=== PATIENT | male | born 1965 | race Caucasian/White ===

== ENCOUNTER → 2020-05-15 15:43 | Outpatient (CLI) | payer BC, SELFPAY ==
--- NOTE | 2020-05-15 15:43 | DI.US.S_ITS ---
PROCEDURE: US ABDOMEN COMPLETE INDICATIONS: abdominal mass/lipoma TECHNIQUE: Real-time scanning was performed of the abdominal and retroperitoneal organs, with image documentation. COMPARISON: [facility], US, ABDOMEN COMPLETE, 06/02/2017, 7:55. FINDINGS: Liver: Liver is enlarged in size at 20 cm craniocaudad and homogeneous in echotexture, densely echogenic consistent with prominent hepatic steatosis. There also is a rounded hypoechoic possible mass involving the liver, measuring approximately 2.3 cm. This could represent a primary or metastatic mass. Gallbladder: Surgically absent Biliary ducts: Intrahepatic bile ducts are non-dilated. Extrahepatic bile duct caliber measures 5.1 mm. Normal is 6-7 mm or less in diameter, or 10 mm or less post-cholecystectomy. Pancreas: Visualized portions of the pancreas are sonographically normal. Spleen: Spleen is normal in size and homogeneous in echotexture. Kidneys: Kidneys are normal in size and echotexture. Right kidney measures 13.6 cm long; left kidney measures 13.5 cm long. No hydronephrosis or nephrolithiasis. No solid masses. Aorta: Visualized aorta is normal in caliber at less than 3 cm. Iliacs: Proximal common iliac arteries are normal in caliber at less than 2.5 cm. IVC: Intrahepatic inferior vena cava is patent. Miscellaneous: No free abdominal fluid. There is a clinically reported right lower quadrant palpable abnormality, lump, which is not associated with identifiable herniation cyst or mass. IMPRESSION: 1. Prominent hepatic steatosis. 2. Possible 2.3 cm mass anterior right hepatic lobe hypoechoic lesion. The finding is in the setting of poorly visualized liver parenchyma due to hepatic steatosis and for this reason multiphase liver CT scanning without and with contrast is recommended to more accurately assess this abnormality. 3. Surgically absent gallbladder. 4. The patient reports palpable abnormality right lower quadrant but no lesion or herniation is seen in this area. CT scanning related to the finding in section to above should be extended through the pelvis to more accurately assess this area. Dictated by: Ziggy Yuen M.D. on 05/15/2020 at 17:24 Approved by: Ziggy Yuen M.D. on 05/15/2020 at 17:28
== END ==
PROVIDERS: Family Provider Family Medicine; PCP Family Medicine; Referring Provider Registered Nurse; Visit Provider Registered Nurse
DX: R19.03 Right lower quadrant abdominal swelling, mass and lump (principal); K76.0 Fatty (change of) liver, not elsewhere classified; Z90.49 Acquired absence of other specified parts of digestive tract
CPT/HCPCS: 76700

== ENCOUNTER → 2020-05-22 12:09 | Outpatient (CLI) | payer BC, SELFPAY ==
--- NOTE | 2020-05-22 13:21 | DI.CT.S_ITS ---
PROCEDURE: CT ABDOMEN PELVIS WO/W CON INDICATIONS: abnormal US abdo. TECHNIQUE: After the administration of oral contrast, 5 mm thick sections acquired from the diaphragms to the iliac crests. After the administration of intravenous contrast, 5 mm thick sections acquired from the diaphragms to the symphysis. 5 mm thick coronal and sagittal reformats were acquired. For radiation dose reduction, the following was used: automated exposure control, adjustment of mA and/or kV according to patient size. COMPARISON: None. FINDINGS: Image quality: Excellent. ABDOMEN: Lung bases: Lung bases are clear. Heart size is normal. Solid organs: Liver is normal in size. Moderate to severe hepatic steatosis is seen. 2.3 centimeter round hyperdense structure is noted in lateral periphery of right hepatic lobe anterior segment series 2, image 29 and measures 31.8 Hounsfield unit in density before contrast. This structure measures 33 Hounsfield unit in density during arterial phase of the scan, 36 Hounsfield unit in density during portal venous phase of the scanned, and 50 Hounsfield unit in density during delayed phase of the scan. No other hepatic lesion is seen. Gallbladder is surgically absent. Biliary system is non-dilated. Pancreas enhances normally. Spleen is normal in size and enhancement. No adrenal nodules. Both kidneys are normal in size. No hydronephrosis or nephrolithiasis. Bowel and peritoneum: Stomach, small and large bowel loops are normal in caliber and wall thickness. No free fluid or air. Appendix is visualized and is within normal limits. Mild colonic diverticulosis is seen, no CT evidence of acute diverticulitis. small hiatal hernia is seen. Nodes and vessels: No retroperitoneal or mesenteric adenopathy by size criteria. Aorta and inferior vena are normal in caliber. Miscellaneous: No ventral hernias. PELVIS: Genitourinary: Bladder wall thickness is normal. Miscellaneous: No inguinal hernias or adenopathy. Bones: No suspicious bony lesions. No vertebral body compression fractures. IMPRESSION: 1. 2.3 cm hyperdense lesion noted in lateral periphery of right hepatic lobe anterior segment with gradual contrast enhancement during portal venous and delayed phase of the scan and no significant enhancement during arterial phase of the scan. This accounts for ultrasound finding of a similar-sized lesion in this area. Imaging characteristics of this lesion is suggestive of hepatic hemangioma. Clinical and sonographic follow-up is recommended. No additional hepatic lesion is seen. 2. Moderate to severe hepatic steatosis. 3. Appendix is visualized and is within normal limits. No abnormal bowel wall thickening. No free fluid or free air. 4. Gallbladder is surgically absent. Dictated by: Jose Santos M.D. on 05/22/2020 at 15:21 Approved by: Jose Santos M.D. on 05/22/2020 at 15:32
== END ==
PROVIDERS: Family Provider Family Medicine; PCP Family Medicine; Referring Provider Registered Nurse; Visit Provider Registered Nurse
DX: R93.5 Abnormal findings on diagnostic imaging of other abdominal regions, including retroperitoneum (principal); R19.00 Intra-abdominal and pelvic swelling, mass and lump, unspecified site; K76.9 Liver disease, unspecified; K76.0 Fatty (change of) liver, not elsewhere classified; Z90.49 Acquired absence of other specified parts of digestive tract
CPT/HCPCS: 74178; Q9967

== ENCOUNTER → 2020-12-15 11:28 | Outpatient (CLI) | payer BC, SELFPAY ==
--- NOTE | 2020-12-15 11:29 | DI.RAD.S_ITS ---
PROCEDURE: XR KNEE RT 3V INDICATIONS: Right knee injury and swelling TECHNIQUE: 3 views of the knee were acquired. COMPARISON: None. FINDINGS: Bones: No acute fracture. Scattered degenerative subchondral sclerosis and spurring. Minimal narrowing of the medial and lateral joint spaces. Subchondral lucency in the medial femoral trochlea measuring 4 mm. Soft tissues: Small joint effusion. No suspicious soft tissue calcifications. IMPRESSION: Mild right knee joint degeneration. Subchondral lucency involving the medial femoral trochlea, which could be cystic, versus osteochondral lesion. Further evaluation could be performed with MRI as clinically necessary. Small joint effusion Numerous loose bodies projecting in the posterior joint space. Dictated by: Junior Patel M.D. on 12/15/2020 at 13:27 Approved by: Junior Patel M.D. on 12/15/2020 at 14:06
== END ==
PROVIDERS: Family Provider Family Medicine; PCP Family Medicine; Referring Provider Student in an Organized Health Care Education/Training Program; Visit Provider Student in an Organized Health Care Education/Training Program
DX: S89.91XA Unspecified injury of right lower leg, initial encounter (principal); M17.11 Unilateral primary osteoarthritis, right knee; M25.461 Effusion, right knee; G57.30 Lesion of lateral popliteal nerve, unspecified lower limb; X58.XXXA Exposure to other specified factors, initial encounter
CPT/HCPCS: 73562

== ENCOUNTER → 2020-12-25 17:50 | Outpatient (CLI) | payer BC, SELFPAY ==
--- NOTE | 2020-12-25 17:51 | DI.MRI.S_ITS ---
PROCEDURE: MR KNEE RT WO/W CON INDICATIONS: bone lesion TECHNIQUE: Noncontrast sagittal PD fast spin echo and T2 fast spin echo with fat saturation, sagittal 3-D FLASH with fat saturation; coronal T1 spin echo and PD fast spin echo with fat saturation, and axial T1 spin echo and PD fast spin echo with fat saturation through the knee. Post-contrast axial, coronal, and sagittal T1 spin echo with fat saturation through the knee. COMPARISON: [facility], CR, XR KNEE RT 3V, 12/15/2020, 11:42. FINDINGS: Image quality: Excellent. Menisci: The medial and lateral menisci demonstrate normal morphology and internal signal. The meniscal root ligaments appear intact. Cruciate ligaments: The anterior and posterior cruciate ligaments appear intact. Medial structures: The medial collateral ligament appears intact. The semimembranosus tendon insertions and meniscocapsular junction appear intact. Visualized portions of the pes anserinus tendons appear normal. No abnormal bursal fluid. Lateral structures: The lateral collateral ligament, long and short heads of the biceps femoris tendon appear intact. The popliteus tendon appears intact. No signs of posterolateral corner injury. Iliotibial band appears normal. Anterior structures: The quadriceps and patellar tendons appear intact. Patellar alignment is normal. No femoral trochlear dysplasia or ventral trochlear prominence. No edema in the infrapatellar fat pad. Bones and cartilage: No suspicious osseous enhancement. There is moderate partial-thickness cartilage thinning and irregularity in the weight-bearing portion of the medial femorotibial compartment with formation of small marginal osteophytes. Focal mild partial-thickness cartilage irregularity is seen in the central portion of the lateral tibial plateau. There is focal full-thickness cartilage loss in the far posterior non upright weight-bearing portion of the lateral femoral condyle with subchondral osteophyte formation. Full-thickness cartilage loss is seen in the medial femoral trochlea and trochlear groove with subchondral cystic changes and marginal osteophyte formation. There is full-thickness cartilage loss in the medial patellar facet with subchondral edema. The previously seen lucent lesion at the medial femoral trochlea is most likely a combination of subchondral cystic lesion and marginal osteophyte formation. No loose osteochondral lesion is seen. Joint space: There is a small joint effusion. A few ossified loose bodies are seen posterior to the intercondylar notch, the largest of which measures up to 13 x 9 x 8 mm. There is mild nonspecific prepatellar subcutaneous edema. No suspicious enhancing soft tissue mass is identified. There is no enhancing synovial hypertrophy. IMPRESSION: 1. The previously seen subchondral lucency at the medial femoral trochlea is likely secondary to a combination of subchondral cystic changes and adjacent marginal osteophyte formation. No loose osteochondral lesion is seen. 2. Full-thickness cartilage loss in the anterior compartment with subchondral cystic changes and subchondral edema. Focal full-thickness cartilage loss and subchondral osteophyte formation is seen in the far posterior portion of the lateral femoral condyle with mild grade 2 chondromalacia in the lateral tibial plateau. Grade 2-3 chondromalacia is seen in the weight-bearing portion of the medial compartment. Tricompartmental marginal osteophytes are present. 3. Intact cruciate and collateral ligaments. No discrete meniscal tear is seen. 4. Small joint effusion. A few ossified loose bodies are seen posterior to the intercondylar notch, the largest of which measures up to 13 mm. Dictated by: Delmer Gomez M.D. on 12/28/2020 at 9:02 Approved by: Delmer Gomez M.D. on 12/28/2020 at 9:14
== END ==
PROVIDERS: Family Provider Family Medicine; PCP Family Medicine; Referring Provider Student in an Organized Health Care Education/Training Program; Visit Provider Student in an Organized Health Care Education/Training Program
DX: M89.9 Disorder of bone, unspecified (principal); M94.261 Chondromalacia, right knee; M25.461 Effusion, right knee
CPT/HCPCS: 73723; A9579

== ENCOUNTER → 2021-01-23 10:04 | Outpatient (CLI) | payer BC, SELFPAY ==
[2021-01-23 11:27] LABS: Add Manual Diff / Slide Review NO; Basophils Absolute Auto 0 /uL (0-100); Basophils Percent Auto 0.3 % (0-2); Eosinophils Absolute Auto 200 /uL (0-450); Eosinophils Percent Auto 2.3 % (2-4); Hematocrit 46.7 % (41-53); Hemoglobin 15.9 g/dL (13.5-17.5); Lymphocytes Absolute Auto 2200 /uL (1100-4500); Lymphocytes Percent Auto 29.8 % (25-40); Mean Corpuscular HGB Conc 34.1 % (30-36); Mean Corpuscular Hemoglobin 30.1 PG (26-34); Mean Corpuscular Volume 88.2 fL (80-100); Monocytes Absolute Auto 600 /uL (0-900); Monocytes Percent Auto 7.6 % (3-14); Neutrophils Absolute Auto 4400 /uL (1500-7000); Platelet Count 222 X10^3/uL (150-400); Red Cell Distribution Width 13.2 % (11.6-14.8); White Blood Cell Count 7.4 X10^3/uL (4.5-11.0)
[2021-01-23 11:54] LABS: Alanine Aminotransferase 42 IU/L (<50); Albumin 4.4 g/dL (3.5-5.0); Albumin Globulin Ratio 1.4 (1.0-2.8); Alkaline Phosphatase 60 U/L (38-126); Aspartate Aminotransferase 29 IU/L (17-59); BUN Creatinine Ratio 19.2 (6-22); Bilirubin Total 1.7 mg/dL (0.2-1.3); Blood Urea Nitrogen 15 mg/dL (9-20); Calcium 9.3 mg/dL (8.4-10.2); Carbon Dioxide 29 mmol/L (22-32); Chloride 104 mmol/L (98-107); Cholesterol 175 mg/dL (140-199); Estimated Glomerular Filt Rate > 60.0 mL/min (>60); Globulin 3.1 g/dL (1.7-4.1); Glucose 98 mg/dL (70-100); HDL Cholesterol 31 mg/dL (40-60); HEMOLYSIS 18 (0-50); LDL Cholesterol Calculated 121 mg/dL (<100); Potassium 4.3 mmol/L (3.4-5.1); Sodium 139 mmol/L (137-145); Total Protein 7.5 g/dL (6.3-8.2); Triglycerides 113 mg/dL (35-150)
== END ==
PROVIDERS: Family Provider Family Medicine; PCP Family Medicine; Referring Provider Family Medicine; Visit Provider Family Medicine
DX: K76.0 Fatty (change of) liver, not elsewhere classified (principal); R74.01 Elevation of levels of liver transaminase levels; E78.6 Lipoprotein deficiency; R73.03 Prediabetes; E66.9 Obesity, unspecified; E78.1 Pure hyperglyceridemia
CPT/HCPCS: 36415; 80053; 80061; 85025

== ENCOUNTER → 2021-01-29 15:45 | Outpatient (CLI) | payer BC, SELFPAY ==
--- NOTE | 2021-01-29 15:46 | DI.CT.S_ITS ---
PROCEDURE: CT ABDOMEN WO/W CON INDICATIONS: fatty liver TECHNIQUE: 4 phase scanning was performed. Non-contrast 5 mm axial sections acquired from the diaphragm to the iliac crests. Following the administration of intravenous contrast, 5 mm thick arterial-phase, portal venous-phase, and 5-minute delayed phase images were acquired through the liver. 5 mm thick coronal and sagittal reformats were performed. For radiation dose reduction, the following was used: automated exposure control, adjustment of mA and/or kV according to patient size. COMPARISON: [facility], US, ABDOMEN COMPLETE, 06/02/2017, 7:55. [facility], CT, THORAX WITH CONTRAST, 12/30/2016, 7:54. [facility], CT, CT ABDOMEN PELVIS WO/W CON, 05/22/2020, 13:24. FINDINGS: Image quality: Excellent. Lung bases: Lung bases are clear. Heart size is normal. Liver: Geographic hepatic steatosis. Area of increased density within the right lobe of the liver on the noncontrast series which follows the pattern of enhancement similar to the other areas of the liver which are not as much affected by steatosis. Overall this is similar in size and appearance compared to CT 05/22/2020. This region was hypoechoic on prior ultrasound. There are was curvilinear enhancement seen on the CT from 2017 in this region. No peripheral nodular discontinuous enhancement on the current CT. Other solid organs: Gallbladder is surgically absent. Biliary system is non dilated. Pancreas is normal in morphology. Spleen is normal in size and enhancement. No adrenal nodules. Both kidneys demonstrate normal size and enhancement, without hydronephrosis or nephrolithiasis. Nodes and vessels: No retroperitoneal or mesenteric adenopathy by size criteria. Aorta and inferior vena cava are normal in size. Bowel and peritoneum: Unenhanced bowel loops are normal in caliber. No free fluid or air. Bones: No suspicious bony lesions. L1 intraosseous hemangioma. No vertebral body compression fractures. Miscellaneous: No ventral hernias. Right lateral chest wall fatty mass seen in 2017 is no longer present. IMPRESSION: 1. Geographic hepatic steatosis. 2. Stable focus of increased density in the right lobe of the liver steatosis region. This most likely represents a hemangioma or focal fatty sparing. It appears that this abnormality was present dating back to 2017. This could be further characterized with MRI of the liver with IV contrast. 3. L1 intraosseous hemangioma. Dictated by: Jl Priest M.D. on 01/29/2021 at 17:03 Approved by: Jl Priest M.D. on 01/29/2021 at 17:16
== END ==
PROVIDERS: Family Provider Family Medicine; PCP Family Medicine; Referring Provider Family Medicine; Visit Provider Family Medicine
DX: K76.0 Fatty (change of) liver, not elsewhere classified (principal); R74.01 Elevation of levels of liver transaminase levels; D18.09 Hemangioma of other sites
CPT/HCPCS: 74170; Q9967

== ENCOUNTER → 2021-11-12 12:31 | Outpatient (CLI) | payer BC, SELFPAY | PROVIDERS: Family Provider Family Medicine; PCP Family Medicine; Visit Provider Registered Nurse | DX: R30.0 Dysuria (principal) | CPT/HCPCS: 87077; 87086; 87186 ==

== ENCOUNTER → 2022-02-14 17:19 | Outpatient (CLI) | payer BC, SELFPAY ==
[2022-02-14 17:34] LABS: Add Manual Diff / Slide Review NO; Basophils Absolute Auto 100 /uL (0-100); Basophils Percent Auto 0.7 % (0-2); Eosinophils Absolute Auto 200 /uL (0-450); Eosinophils Percent Auto 2.1 % (2-4); Hematocrit 46.3 % (41-53); Hemoglobin 16.1 g/dL (13.5-17.5); Lymphocytes Absolute Auto 2800 /uL (1100-4500); Lymphocytes Percent Auto 32.1 % (25-40); Mean Corpuscular HGB Conc 34.8 % (30-36); Mean Corpuscular Hemoglobin 30.3 PG (26-34); Mean Corpuscular Volume 87.2 fL (80-100); Monocytes Absolute Auto 800 /uL (0-900); Monocytes Percent Auto 8.8 % (3-14); Neutrophils Absolute Auto 4900 /uL (1500-7000); Neutrophils Percent Auto 56.3 % (50-75); Platelet Count 214 X10^3/uL (150-400); Red Blood Cell Count 5.31 X10^6/uL (4.5-5.9); Red Cell Distribution Width 13.8 % (11.6-14.8); White Blood Cell Count 8.7 X10^3/uL (4.5-11.0)
[2022-02-14 17:55] LABS: Alanine Aminotransferase 35 IU/L (<50); Albumin 4.7 g/dL (3.5-5.0); Albumin Globulin Ratio 1.4 (1.0-2.8); Alkaline Phosphatase 88 U/L (38-126); Aspartate Aminotransferase 28 IU/L (17-59); Bilirubin Total 1.1 mg/dL (0.2-1.3); Blood Urea Nitrogen 16 mg/dL (9-20); Calcium 9.3 mg/dL (8.4-10.2); Carbon Dioxide 30 mmol/L (22-32); Chloride 100 mmol/L (98-107); Cholesterol 173 mg/dL (140-199); Estimated Glomerular Filt Rate > 60 mL/min (>60); Globulin 3.4 g/dL (1.7-4.1); Glucose 100 mg/dL (70-100); HDL Cholesterol 29 mg/dL (40-60); HEMOLYSIS 21 (0-50); LDL Cholesterol Calculated 77 mg/dL (<100); Potassium 4.1 mmol/L (3.4-5.1); Sodium 139 mmol/L (137-145); Total Protein 8.1 g/dL (6.3-8.2); Triglycerides 337 mg/dL (35-150)
[2022-02-14 19:27] LABS: TSH w/ Reflex to FT4 2.76 uIU/mL (0.47-4.68)
== END ==
PROVIDERS: Family Provider Family Medicine; PCP Family Medicine; Referring Provider Family Medicine; Visit Provider Family Medicine
DX: E66.9 Obesity, unspecified (principal); E78.1 Pure hyperglyceridemia; H35.373 Puckering of macula, bilateral; R73.03 Prediabetes; R74.01 Elevation of levels of liver transaminase levels; R17 Unspecified jaundice
CPT/HCPCS: 36415; 80053; 80061; 82248; 84443; 85025

== ENCOUNTER → 2023-11-06 07:53 | Outpatient (CLI) | payer BC, SELFPAY ==
[2023-11-06 08:53] LABS: Alanine Aminotransferase 24 IU/L (<50); Albumin 4.3 g/dL (3.5-5.0); Albumin Globulin Ratio 1.7 (1.0-2.8); Alkaline Phosphatase 78 U/L (38-126); Aspartate Aminotransferase 23 IU/L (17-59); Bilirubin Total 2.1 mg/dL (0.2-1.3); Blood Urea Nitrogen 12 mg/dL (9-20); Calcium 9.6 mg/dL (8.4-10.2); Carbon Dioxide 29 mmol/L (22-32); Chloride 103 mmol/L (98-107); Cholesterol 149 mg/dL (140-199); Estimated Glomerular Filt Rate > 60 mL/min (>60); Globulin 2.6 g/dL (1.7-4.1); Glucose 99 mg/dL (70-100); HDL Cholesterol 29 mg/dL (40-60); HEMOLYSIS < 15 (0-50); LDL Cholesterol Calculated 94 mg/dL (<100); Potassium 4.5 mmol/L (3.4-5.1); Sodium 141 mmol/L (137-145); Total Protein 6.9 g/dL (6.3-8.2); Triglycerides 128 mg/dL (35-150)
[2023-11-06 09:23] LABS: TSH w/ Reflex to FT4 1.36 uIU/mL (0.47-4.68)
[2023-11-06 10:06] LABS: Hemoglobin A1C% w Est Avg Glu 5.1 % (4.0-6.0)
== END ==
PROVIDERS: Family Provider Family Medicine; PCP Family Medicine; Referring Provider Family Medicine; Visit Provider Family Medicine
DX: E78.6 Lipoprotein deficiency (principal); E66.9 Obesity, unspecified; R73.03 Prediabetes; K76.0 Fatty (change of) liver, not elsewhere classified; E78.1 Pure hyperglyceridemia
CPT/HCPCS: 36415; 80053; 80061; 83036; 84443

== ENCOUNTER → 2024-02-02 07:21 | Outpatient (CLI) | payer BC, SELFPAY ==
--- NOTE | 2024-02-02 07:23 | DI.US.S_ITS ---
PROCEDURE: US EXTREMITY NONVASC LOWER LT INDICATIONS: Achilles tendon injury - 3 weeks ago TECHNIQUE: Real-time scanning was performed of the left Achilles tendon, with image documentation. COMPARISON: None. FINDINGS: There is thickening of the insertional Achilles tendon up to 7 mm in the transverse dimension. Mild calcified enthesopathy is present at the distal insertion with mild thickening and hypoechogenicity of the tendon. IMPRESSION: Mild Achilles tendinosis without a focal tear. If there is persistent concern for a tear, consider MRI of the ankle without contrast (with extended field of view to include the Achilles tendon) for further evaluation. Dictated by: Elijah Rodgers M.D. on 02/02/2024 at 14:59 Approved by: Elijah Rodgers M.D. on 02/02/2024 at 15:02
== END ==
PROVIDERS: PCP Family Medicine; Referring Provider Physician Assistant; Visit Provider Physician Assistant
DX: S86.012A Strain of left Achilles tendon, initial encounter (principal); X58.XXXA Exposure to other specified factors, initial encounter
CPT/HCPCS: 76882

== ENCOUNTER 2024-04-11 17:00 | Outpatient (RCR) | payer BC, SELFPAY ==
--- NOTE | 2024-03-19 16:59 | PT.OIE ---
Current Diagnoses Stiffness of left ankle, not elsewhere classified (03/19/24) Achilles tendinitis, left leg (03/19/24) Past Medical History (Last Reviewed 11/12/21 @ 13:02 by KYRA Richardson) Fatty liver Hypertriglyceridemia Lipoma Visit Care Team Role Provider Type Casa Schulte MD Family Provider Physician Primary Care Provider Specialty: Family Practice Address: [address] [place] [address], [id number] Email: [email or web address] Rashida Rodriguez PA-C Attending Provider Advanced Back Roll Lathe Operator Referring Provider Specialty: Medical Address: [address] [place] [address], [address], [place], [address] Email: [email or web address] Physical Therapy Initial Evaluation PT-OP-A Visit Information Start: 03/19/24 17:45 Freq: Status: Active Protocol: Document 03/19/24 16:15 DCW (Rec: 03/19/24 17:48 DCW [id number]) Out-Patient Physical Therapy Visit Information Visit Information Visit Type Initial Evaluation Visit Start Time 16:15 Visit Stop Time 17:00 Visit Number 1 Number of CNC OPERATOR Visits 0 Evaluation Information Evaluation Date 03/19/24 PT-OP-B Current Condition Start: 03/19/24 17:45 Freq: Status: Active Protocol: Document 03/19/24 16:15 DCW (Rec: 03/20/24 10:45 DCW [id number]) Current Condition History of Current Condition Onset Date January, Current Complaints Left ankle/heel pain History of Current Condition Pt is a 59 year old male presenting with a two month history of left heel pain. Pt reports he was playing Pickle Ball and running around, felt a pull in his heel, and then had fairly extreme pain, resulting in significant difficulty walking. Admits he was slowly improving, felt he was probably 60% better, until this weekend when he was out at [facility] and slipped on some ice in the parking lot . Didn't fall, but the sudden slip/correction seems to have reinjured his left heel. Diagnostic Ultrasound showed no focal tear, but there was some thickening at the Achilles tendon insertion point. Pain has been limiting him a bit, usually goes on walks every night, but can currently only tolerate a few blocks. Pt feels he has to lift weights gingerly. Admits that even with recent setback, is not nearly as bad as when it initially happened. Treatment Goals Patient/Caregiver Goals Return to prior level of function, decrease pain PT-OP-C Subjective Start: 03/19/24 17:45 Freq: Status: Active Protocol: Document 03/19/24 16:15 DCW (Rec: 03/20/24 09:41 DCW [id number]) OP-PT Subjective Patient Comments Patient Comments I was doing a lot better until I did something stupid this weekend. Patient Questionnaires Lower Extremity Functional Scale LEFS Score 47/80 = 58.75% PT-OP-F Manual Assessment Start: 03/19/24 17:45 Freq: Status: Active Protocol: Document 03/19/24 16:15 DCW (Rec: 03/20/24 09:41 DCW [id number]) Manual Assessments Soft Tissue Assessment Soft Tissue Mobility Assessment Mild edema with tenderness to palpation 2/4: Pain with wincing at Achilles tendon insertion PT-OP-K Range of Motion Start: 03/19/24 17:45 Freq: Status: Active Protocol: Document 03/19/24 16:15 DCW (Rec: 03/20/24 09:41 DCW [id number]) Ankle and Foot Goniometric Range of Motion Ankle and Foot Right Active Dorsiflexion with Knee Flexed 10 Dorsiflexion with Knee Extended 10 Plantarflexion 60 Inversion 40 Eversion 20 Left Active Ankle/Foot ROM WFL No Testing Position Sitting Dorsiflexion with Knee Flexed 3 Plantarflexion 60 Inversion 40 Eversion 20 Comments DF with knee extended measured at -2? PT-OP-M Strength Start: 03/19/24 17:45 Freq: Status: Active Protocol: Document 03/19/24 16:15 DCW (Rec: 03/20/24 09:41 DCW [id number]) Ankle/Foot Strength Ankle and Foot Manual Muscle Testing Right Dorsiflexion (L4) 5 Normal Plantarflexion (S1) 5 Normal Left Dorsiflexion (L4) 5 Normal Plantarflexion (S1) 2+ Poor+ PT-OP-Q Treatments Start: 03/19/24 17:45 Freq: Status: Active Protocol: Document 03/19/24 16:15 DCW (Rec: 03/19/24 17:48 DCW [id number]) Therapeutic Exercises Sitting Exercises Ankle Flexion Sitting Exercise Name Dorsiflexion Side left Resistance Lv 3 Standing Exercises Heel Raises Standing Exercise Name Eccentric heel raises Side left Comments Stopped d/t pain Calf Stretch Standing Exercise Name Runner's stretch Side left PT-OP-R Modalities Start: 03/19/24 17:46 Freq: Status: Active Protocol: Document 03/19/24 16:15 DCW (Rec: 03/19/24 17:48 DCW [id number]) Ultrasound Therapy Treatment Left Foot Patient Position Prone Coupling Medium Ultrasound Gel Applicator Size (cm2) 2 Frequency Setting (mHz) 3 Mode Setting Continuous Duty Cycle 100% Intensity Setting (w/cm2) 1.0 PT-OP-T Assessment and Plan Start: 03/19/24 17:45 Freq: Status: Active Protocol: Document 03/19/24 16:15 DCW (Rec: 03/20/24 10:45 DCW [id number]) Physical Therapy Assessment Rehab Potential Rehabilitation Potential Good Evaluation Complexity Number of Personal Factors/Comorbidities 0 Number of Body Systems Impaired 4 or More Clinical Presentation at Evaluation Stable Impairments Impairments Activity Tolerance,Gait,Pain, ROM,Strength Goals Three Impairment Pt unable to perform left single heel raise Golf Cart Mechanic Goal (LTG) Pt to demonstrate ability to perform 10 single heel raises on left LE in order to demonstrate improved PF strength LTG Duration 05/18/24 Two Impairment Pt exhibits decreased left dorsiflexion Golf Cart Mechanic Goal (LTG) Pt to increase active left dorsiflexion to 5? both with knee flexed and knee extended in order to demonstrate improved functional mobility LTG Duration 05/18/24 One Impairment Pt does not have an appropriate home exercise program Short Term Goal (STG) Pt to be independent and compliant with an appropriate HEP STG Duration 04/19/24 Assessment Summary Assessment Pt presents with signs and symptoms consistent with referring diagnosis. Moderate tenderness and mild edema at Achilles insertion point on left heel. Pt already doing a lot of work at home, including calf stretch, K-tape, and massage. Pt currently limited with ambulation/activity tolerance, lifting weight, and ROM. Pt will likely benefit from skilled therapy focusing on decreasing tone and inflammation, pain management, and strengthening. Physical Therapy Plan Frequency and Duration Frequency of Treatment 2x/Week Plan of Care Start Date 03/19/24 Plan of Care End Date 05/17/24 Therapeutic Interventions Therapeutic Interventions Gait Training,Home Exercise Program,Joint Mobilizations, Manual Therapy,Neuromuscular Re-education,Patient/Caregiver Education,Self-Care/Home Management,Soft Tissue Mobilization,Taping, Therapeutic Activities, Therapeutic Exercises Modalities Cold Pack/Ice Massage,Hot Packs,Ultrasound Next Visit Focus/Plan Next Note Type Treatment Note Next Visit Plan US, STM, stretching, strengthening
--- NOTE | 2024-03-19 17:00 | PT.OPPOC ---
Physical, Occupational & Speech Therapy At [facility] Current Diagnoses Stiffness of left ankle, not elsewhere classified (03/19/24) Achilles tendinitis, left leg (03/19/24) Visit Care Team Role Provider Type Casa Schulte MD Family Provider Physician Primary Care Provider Specialty: Family Practice Address: [address] [place] [address], [id number] Email: [email or web address] Rashida Rodriguez PA-C Attending Provider Advanced Acoustics Teacher Referring Provider Specialty: Medical Address: [address] [place] [address], [address], [place], [address] Email: [email or web address] Plan Of Care PT-OP-B Current Condition Start: 03/19/24 17:45 Freq: Status: Active Protocol: Document 03/19/24 16:15 DCW (Rec: 03/20/24 10:45 DCW [id number]) Current Condition History of Current Condition Onset Date January, Current Complaints Left ankle/heel pain History of Current Condition Pt is a 59 year old male presenting with a two month history of left heel pain. Pt reports he was playing Pickle Ball and running around, felt a pull in his heel, and then had fairly extreme pain, resulting in significant difficulty walking. Admits he was slowly improving, felt he was probably 60% better, until this weekend when he was out at [facility] and slipped on some ice in the parking lot . Didn't fall, but the sudden slip/correction seems to have reinjured his left heel. Diagnostic Ultrasound showed no focal tear, but there was some thickening at the Achilles tendon insertion point. Pain has been limiting him a bit, usually goes on walks every night, but can currently only tolerate a few blocks. Pt feels he has to lift weights gingerly. Admits that even with recent setback, is not nearly as bad as when it initially happened. Treatment Goals Patient/Caregiver Goals Return to prior level of function, decrease pain PT-OP-T Assessment and Plan Start: 03/19/24 17:45 Freq: Status: Active Protocol: Document 03/19/24 16:15 DCW (Rec: 03/20/24 10:45 DCW [id number]) Physical Therapy Assessment Rehab Potential Rehabilitation Potential Good Evaluation Complexity Number of Personal Factors/Comorbidities 0 Number of Body Systems Impaired 4 or More Clinical Presentation at Evaluation Stable Impairments Impairments Activity Tolerance,Gait,Pain, ROM,Strength Goals Three Impairment Pt unable to perform left single heel raise Fpc Goal (LTG) Pt to demonstrate ability to perform 10 single heel raises on left LE in order to demonstrate improved PF strength LTG Duration 05/18/24 Two Impairment Pt exhibits decreased left dorsiflexion Fpc Goal (LTG) Pt to increase active left dorsiflexion to 5? both with knee flexed and knee extended in order to demonstrate improved functional mobility LTG Duration 05/18/24 One Impairment Pt does not have an appropriate home exercise program Short Term Goal (STG) Pt to be independent and compliant with an appropriate HEP STG Duration 04/19/24 Assessment Summary Assessment Pt presents with signs and symptoms consistent with referring diagnosis. Moderate tenderness and mild edema at Achilles insertion point on left heel. Pt already doing a lot of work at home, including calf stretch, K-tape, and massage. Pt currently limited with ambulation/activity tolerance, lifting weight, and ROM. Pt will likely benefit from skilled therapy focusing on decreasing tone and inflammation, pain management, and strengthening. Physical Therapy Plan Frequency and Duration Frequency of Treatment 2x/Week Plan of Care Start Date 03/19/24 Plan of Care End Date 05/17/24 Therapeutic Interventions Therapeutic Interventions Gait Training,Home Exercise Program,Joint Mobilizations, Manual Therapy,Neuromuscular Re-education,Patient/Caregiver Education,Self-Care/Home Management,Soft Tissue Mobilization,Taping, Therapeutic Activities, Therapeutic Exercises Modalities Cold Pack/Ice Massage,Hot Packs,Ultrasound Next Visit Focus/Plan Next Note Type Treatment Note Next Visit Plan US, STM, stretching, strengthening Plan of Care Dates Plan of Care Start Date 03/19/24 Plan of Care End Date 05/17/24 Electronically Signed by: Patricio Candelario, PT 03/20/24 3026 If you are in agreement with this Plan of Care, please return a signed and dated copy. I have reviewed this Plan of Care and certify that the skilled therapy services above are required to meet the patient?s needs. Physician Signature Date Printed Name and Credentials Clinical Instructor Signature Printed Name and Credentials
--- NOTE | 2024-03-20 10:45 | PT.OIE ---
Current Diagnoses Stiffness of left ankle, not elsewhere classified (03/19/24) Achilles tendinitis, left leg (03/19/24) Past Medical History (Last Reviewed 11/12/21 @ 13:02 by KYRA Richardson) Fatty liver Hypertriglyceridemia Lipoma Visit Care Team Role Provider Type Casa Schulte MD Family Provider Physician Primary Care Provider Specialty: Family Practice Address: [address] [place] [address], [id number] Email: [email or web address] Rashida Rodriguez PA-C Attending Provider Advanced Spike Maker Referring Provider Specialty: Medical Address: [address] [place] [address], [address], [place], [address] Email: [email or web address] Physical Therapy Initial Evaluation PT-OP-A Visit Information Start: 03/19/24 17:45 Freq: Status: Active Protocol: Document 03/19/24 16:15 DCW (Rec: 03/19/24 17:48 DCW [id number]) Out-Patient Physical Therapy Visit Information Visit Information Visit Type Initial Evaluation Visit Start Time 16:15 Visit Stop Time 17:00 Visit Number 1 Number of INDUSTRIAL RELATIONS REPRESENTATIVE Visits 0 Evaluation Information Evaluation Date 03/19/24 PT-OP-B Current Condition Start: 03/19/24 17:45 Freq: Status: Active Protocol: Document 03/19/24 16:15 DCW (Rec: 03/20/24 10:45 DCW [id number]) Current Condition History of Current Condition Onset Date January, Current Complaints Left ankle/heel pain History of Current Condition Pt is a 59 year old male presenting with a two month history of left heel pain. Pt reports he was playing Pickle Ball and running around, felt a pull in his heel, and then had fairly extreme pain, resulting in significant difficulty walking. Admits he was slowly improving, felt he was probably 60% better, until this weekend when he was out at [employer] and slipped on some ice in the parking lot . Didn't fall, but the sudden slip/correction seems to have reinjured his left heel. Diagnostic Ultrasound showed no focal tear, but there was some thickening at the Achilles tendon insertion point. Pain has been limiting him a bit, usually goes on walks every night, but can currently only tolerate a few blocks. Pt feels he has to lift weights gingerly. Admits that even with recent setback, is not nearly as bad as when it initially happened. Treatment Goals Patient/Caregiver Goals Return to prior level of function, decrease pain PT-OP-C Subjective Start: 03/19/24 17:45 Freq: Status: Active Protocol: Document 03/19/24 16:15 DCW (Rec: 03/20/24 09:41 DCW [id number]) OP-PT Subjective Patient Comments Patient Comments I was doing a lot better until I did something stupid this weekend. Patient Questionnaires Lower Extremity Functional Scale LEFS Score 47/80 = 58.75% PT-OP-F Manual Assessment Start: 03/19/24 17:45 Freq: Status: Active Protocol: Document 03/19/24 16:15 DCW (Rec: 03/20/24 09:41 DCW [id number]) Manual Assessments Soft Tissue Assessment Soft Tissue Mobility Assessment Mild edema with tenderness to palpation 2/4: Pain with wincing at Achilles tendon insertion PT-OP-K Range of Motion Start: 03/19/24 17:45 Freq: Status: Active Protocol: Document 03/19/24 16:15 DCW (Rec: 03/20/24 09:41 DCW [id number]) Ankle and Foot Goniometric Range of Motion Ankle and Foot Right Active Dorsiflexion with Knee Flexed 10 Dorsiflexion with Knee Extended 10 Plantarflexion 60 Inversion 40 Eversion 20 Left Active Ankle/Foot ROM WFL No Testing Position Sitting Dorsiflexion with Knee Flexed 3 Plantarflexion 60 Inversion 40 Eversion 20 Comments DF with knee extended measured at -2? PT-OP-M Strength Start: 03/19/24 17:45 Freq: Status: Active Protocol: Document 03/19/24 16:15 DCW (Rec: 03/20/24 09:41 DCW [id number]) Ankle/Foot Strength Ankle and Foot Manual Muscle Testing Right Dorsiflexion (L4) 5 Normal Plantarflexion (S1) 5 Normal Left Dorsiflexion (L4) 5 Normal Plantarflexion (S1) 2+ Poor+ PT-OP-Q Treatments Start: 03/19/24 17:45 Freq: Status: Active Protocol: Document 03/19/24 16:15 DCW (Rec: 03/19/24 17:48 DCW [id number]) Therapeutic Exercises Sitting Exercises Ankle Flexion Sitting Exercise Name Dorsiflexion Side left Resistance Lv 3 Standing Exercises Heel Raises Standing Exercise Name Eccentric heel raises Side left Comments Stopped d/t pain Calf Stretch Standing Exercise Name Runner's stretch Side left PT-OP-R Modalities Start: 03/19/24 17:46 Freq: Status: Active Protocol: Document 03/19/24 16:15 DCW (Rec: 03/19/24 17:48 DCW [id number]) Ultrasound Therapy Treatment Left Foot Patient Position Prone Coupling Medium Ultrasound Gel Applicator Size (cm2) 2 Frequency Setting (mHz) 3 Mode Setting Continuous Duty Cycle 100% Intensity Setting (w/cm2) 1.0 PT-OP-T Assessment and Plan Start: 03/19/24 17:45 Freq: Status: Active Protocol: Document 03/19/24 16:15 DCW (Rec: 03/20/24 10:45 DCW [id number]) Physical Therapy Assessment Rehab Potential Rehabilitation Potential Good Evaluation Complexity Number of Personal Factors/Comorbidities 0 Number of Body Systems Impaired 4 or More Clinical Presentation at Evaluation Stable Impairments Impairments Activity Tolerance,Gait,Pain, ROM,Strength Goals Three Impairment Pt unable to perform left single heel raise Rn Clinician Goal (LTG) Pt to demonstrate ability to perform 10 single heel raises on left LE in order to demonstrate improved PF strength LTG Duration 05/18/24 Two Impairment Pt exhibits decreased left dorsiflexion Rn Clinician Goal (LTG) Pt to increase active left dorsiflexion to 5? both with knee flexed and knee extended in order to demonstrate improved functional mobility LTG Duration 05/18/24 One Impairment Pt does not have an appropriate home exercise program Short Term Goal (STG) Pt to be independent and compliant with an appropriate HEP STG Duration 04/19/24 Assessment Summary Assessment Pt presents with signs and symptoms consistent with referring diagnosis. Moderate tenderness and mild edema at Achilles insertion point on left heel. Pt already doing a lot of work at home, including calf stretch, K-tape, and massage. Pt currently limited with ambulation/activity tolerance, lifting weight, and ROM. Pt will likely benefit from skilled therapy focusing on decreasing tone and inflammation, pain management, and strengthening. Physical Therapy Plan Frequency and Duration Frequency of Treatment 2x/Week Plan of Care Start Date 03/19/24 Plan of Care End Date 05/17/24 Therapeutic Interventions Therapeutic Interventions Gait Training,Home Exercise Program,Joint Mobilizations, Manual Therapy,Neuromuscular Re-education,Patient/Caregiver Education,Self-Care/Home Management,Soft Tissue Mobilization,Taping, Therapeutic Activities, Therapeutic Exercises Modalities Cold Pack/Ice Massage,Hot Packs,Ultrasound Next Visit Focus/Plan Next Note Type Treatment Note Next Visit Plan US, STM, stretching, strengthening
--- NOTE | 2024-04-02 17:52 | PT.OTN ---
Current Diagnoses Stiffness of left ankle, not elsewhere classified (04/02/24) Achilles tendinitis, left leg (04/02/24) Physical Therapy Treatment Note PT-OP-A Visit Information Start: 03/19/24 17:45 Freq: Status: Active Protocol: Document 04/02/24 17:00 DCW (Rec: 04/02/24 17:52 DCW [id number]) Out-Patient Physical Therapy Visit Information Visit Information Visit Type Treatment Note Visit Start Time 17:00 Visit Stop Time 17:45 Visit Number 2 Number of CAD DRAFTSMAN Visits 0 Evaluation Information Evaluation Date 03/19/24 PT-OP-B Current Condition Start: 03/19/24 17:45 Freq: Status: Active Protocol: Document 03/19/24 16:15 DCW (Rec: 03/20/24 10:45 DCW [id number]) Current Condition History of Current Condition Onset Date January, Current Complaints Left ankle/heel pain History of Current Condition Pt is a 59 year old male presenting with a two month history of left heel pain. Pt reports he was playing Pickle Ball and running around, felt a pull in his heel, and then had fairly extreme pain, resulting in significant difficulty walking. Admits he was slowly improving, felt he was probably 60% better, until this weekend when he was out at [facility] and slipped on some ice in the parking lot . Didn't fall, but the sudden slip/correction seems to have reinjured his left heel. Diagnostic Ultrasound showed no focal tear, but there was some thickening at the Achilles tendon insertion point. Pain has been limiting him a bit, usually goes on walks every night, but can currently only tolerate a few blocks. Pt feels he has to lift weights gingerly. Admits that even with recent setback, is not nearly as bad as when it initially happened. Treatment Goals Patient/Caregiver Goals Return to prior level of function, decrease pain PT-OP-C Subjective Start: 03/19/24 17:45 Freq: Status: Active Protocol: Document 04/02/24 17:00 DCW (Rec: 04/02/24 17:52 DCW [id number]) OP-PT Subjective Patient Comments Patient Comments Pt had a hectic day. Heel continues to re-improve following set-back shortly prior to his initial evaluation. PT-OP-F Manual Assessment Start: 03/19/24 17:45 Freq: Status: Active Protocol: Document 03/19/24 16:15 DCW (Rec: 03/20/24 09:41 DCW [id number]) Manual Assessments Soft Tissue Assessment Soft Tissue Mobility Assessment Mild edema with tenderness to palpation 2/4: Pain with wincing at Achilles tendon insertion PT-OP-K Range of Motion Start: 03/19/24 17:45 Freq: Status: Active Protocol: Document 03/19/24 16:15 DCW (Rec: 03/20/24 09:41 DCW [id number]) Ankle and Foot Goniometric Range of Motion Ankle and Foot Right Active Dorsiflexion with Knee Flexed 10 Dorsiflexion with Knee Extended 10 Plantarflexion 60 Inversion 40 Eversion 20 Left Active Ankle/Foot ROM WFL No Testing Position Sitting Dorsiflexion with Knee Flexed 3 Plantarflexion 60 Inversion 40 Eversion 20 Comments DF with knee extended measured at -2? PT-OP-M Strength Start: 03/19/24 17:45 Freq: Status: Active Protocol: Document 03/19/24 16:15 DCW (Rec: 03/20/24 09:41 DCW [id number]) Ankle/Foot Strength Ankle and Foot Manual Muscle Testing Right Dorsiflexion (L4) 5 Normal Plantarflexion (S1) 5 Normal Left Dorsiflexion (L4) 5 Normal Plantarflexion (S1) 2+ Poor+ PT-OP-Q Treatments Start: 03/19/24 17:45 Freq: Status: Active Protocol: Document 04/02/24 17:00 DCW (Rec: 04/02/24 17:52 DCW [id number]) Gym Equipment Shuttle Balance Red Details WBOS, Staggered Therapeutic Exercises Other Exercises SLS Other Exercise Name SLS on AirEx Side bilateral Manual Therapy Treatment Taping Achilles Body Location L Achilles supportive taping Type of Tape Kinesio Tape PT-OP-R Modalities Start: 03/19/24 17:46 Freq: Status: Active Protocol: Document 04/02/24 17:00 DCW (Rec: 04/02/24 17:52 DCW [id number]) Ultrasound Therapy Treatment Left Foot Patient Position Prone Coupling Medium Ultrasound Gel Applicator Size (cm2) 2 Frequency Setting (mHz) 3 Mode Setting Continuous Duty Cycle 100% Intensity Setting (w/cm2) 1.0 PT-OP-T Assessment and Plan Start: 03/19/24 17:45 Freq: Status: Active Protocol: Document 04/02/24 17:00 DCW (Rec: 04/02/24 17:52 [facility] [id number]) Physical Therapy Assessment Assessment Summary Assessment Good response to treatment, feeling like he has made good improvement following his set- back ~ 2.5 weeks ago. Continue to focus on ankle stabilization, strengthening as tolerated, and calf stretching. Physical Therapy Plan Frequency and Duration Frequency of Treatment 2x/Week Plan of Care Start Date 03/19/24 Plan of Care End Date 05/17/24 Therapeutic Interventions Therapeutic Interventions Gait Training,Home Exercise Program,Joint Mobilizations, Manual Therapy,Neuromuscular Re-education,Patient/Caregiver Education,Self-Care/Home Management,Soft Tissue Mobilization,Taping, Therapeutic Activities, Therapeutic Exercises Modalities Cold Pack/Ice Massage,Hot Packs,Ultrasound Next Visit Focus/Plan Next Note Type Treatment Note Next Visit Plan US, STM, stretching, strengthening
--- NOTE | 2024-04-09 16:27 | PT.OTN ---
Current Diagnoses Stiffness of left ankle, not elsewhere classified (04/09/24) Achilles tendinitis, left leg (04/09/24) Physical Therapy Treatment Note PT-OP-A Visit Information Start: 03/19/24 17:45 Freq: Status: Active Protocol: Document 04/09/24 15:23 AB (Rec: 04/09/24 16:27 AB [id number]) Out-Patient Physical Therapy Visit Information Visit Information Visit Start Time 15:21 Visit Stop Time 16:12 Visit Number 3 Number of CEO NA Visits 1 PT-OP-B Current Condition Start: 03/19/24 17:45 Freq: Status: Active Protocol: Document 03/19/24 16:15 DCW (Rec: 03/20/24 10:45 DCW [id number]) Current Condition History of Current Condition Onset Date January, Current Complaints Left ankle/heel pain History of Current Condition Pt is a 59 year old male presenting with a two month history of left heel pain. Pt reports he was playing Pickle Ball and running around, felt a pull in his heel, and then had fairly extreme pain, resulting in significant difficulty walking. Admits he was slowly improving, felt he was probably 60% better, until this weekend when he was out at [facility] and slipped on some ice in the parking lot . Didn't fall, but the sudden slip/correction seems to have reinjured his left heel. Diagnostic Ultrasound showed no focal tear, but there was some thickening at the Achilles tendon insertion point. Pain has been limiting him a bit, usually goes on walks every night, but can currently only tolerate a few blocks. Pt feels he has to lift weights gingerly. Admits that even with recent setback, is not nearly as bad as when it initially happened. Treatment Goals Patient/Caregiver Goals Return to prior level of function, decrease pain PT-OP-C Subjective Start: 03/19/24 17:45 Freq: Status: Active Protocol: Document 04/09/24 15:23 AB (Rec: 04/09/24 16:27 AB [id number]) OP-PT Subjective Patient Comments Patient Comments Patient reports he is improving still has pain with walking but not as severe. Patient rates pain 2-3/10 ambulating into session without device. PT-OP-F Manual Assessment Start: 03/19/24 17:45 Freq: Status: Active Protocol: Document 03/19/24 16:15 DCW (Rec: 03/20/24 09:41 DCW [id number]) Manual Assessments Soft Tissue Assessment Soft Tissue Mobility Assessment Mild edema with tenderness to palpation 2/4: Pain with wincing at Achilles tendon insertion PT-OP-K Range of Motion Start: 03/19/24 17:45 Freq: Status: Active Protocol: Document 03/19/24 16:15 DCW (Rec: 03/20/24 09:41 DCW [id number]) Ankle and Foot Goniometric Range of Motion Ankle and Foot Right Active Dorsiflexion with Knee Flexed 10 Dorsiflexion with Knee Extended 10 Plantarflexion 60 Inversion 40 Eversion 20 Left Active Ankle/Foot ROM WFL No Testing Position Sitting Dorsiflexion with Knee Flexed 3 Plantarflexion 60 Inversion 40 Eversion 20 Comments DF with knee extended measured at -2? PT-OP-M Strength Start: 03/19/24 17:45 Freq: Status: Active Protocol: Document 03/19/24 16:15 DCW (Rec: 03/20/24 09:41 DCW [id number]) Ankle/Foot Strength Ankle and Foot Manual Muscle Testing Right Dorsiflexion (L4) 5 Normal Plantarflexion (S1) 5 Normal Left Dorsiflexion (L4) 5 Normal Plantarflexion (S1) 2+ Poor+ PT-OP-Q Treatments Start: 03/19/24 17:45 Freq: Status: Active Protocol: Document 04/09/24 15:23 AB (Rec: 04/09/24 16:27 AB [id number]) Therapeutic Exercises Sitting Exercises PF with band Sitting Exercise Name PF with band Ankle Flexion Sitting Exercise Name Dorsiflexion Side left Resistance Lv 1 Equipment Used HEP Reps/Minutes X15 without band X 15 with band Standing Exercises soleus stretch on 2 inch block Side bilateral Equipment Used HEP Reps/Minutes 60 sec Comments monitored for pain Calf stretches on MIKE Standing Exercise Name gastroc and soleus Side bilateral Reps/Minutes 60 sec each ( also 60 sec on wood block for soleus) Comments verbal cues Heel Raises Standing Exercise Name gastroc on floor and on stairs , soleus Side bilateral Equipment Used HEP B HR with knees straight Reps/Minutes X10 and X 4 gastroc on floor, X 15 on stair, X 3 soleus Calf Stretch Standing Exercise Name gastroc and soleus runner's stretch Side bilateral Reps/Minutes 60 sec each LE for gastroc init soles R W/ discomf calclan Comments Verbal and visual cues Manual Therapy Treatment Consent Patient gave verbal consent for manual Yes treatment Soft Tissue Mobilization left calf Mobilization Type Cross-Friction,Rolling Intensity/Depth Moderate Body Position Prone Comments with AROM DF X10 end of STM, but during STM Taping Achilles Body Location L Achilles supportive taping Type of Tape Kinesio Tape PT-OP-R Modalities Start: 03/19/24 17:46 Freq: Status: Active Protocol: Document 04/09/24 15:23 AB (Rec: 04/09/24 16:27 AB [id number]) Ultrasound Therapy Treatment Left Foot Patient Position Prone Coupling Medium Ultrasound Gel Applicator Size (cm2) 2 Frequency Setting (mHz) 3 Mode Setting Continuous Duty Cycle 100% Intensity Setting (w/cm2) 1.0 PT-OP-T Assessment and Plan Start: 03/19/24 17:45 Freq: Status: Active Protocol: Document 04/09/24 15:23 AB (Rec: 04/09/24 16:27 AB [id number]) Physical Therapy Assessment Goals Three Impairment Pt unable to perform left single heel raise Dip Unit Operator Goal (LTG) Pt to demonstrate ability to perform 10 single heel raises on left LE in order to demonstrate improved PF strength LTG Duration 05/18/24 Two Impairment Pt exhibits decreased left dorsiflexion Halfway Goal (LTG) Pt to increase active left dorsiflexion to 5? both with knee flexed and knee extended in order to demonstrate improved functional mobility LTG Duration 05/18/24 One Impairment Pt does not have an appropriate home exercise program Short Term Goal (STG) Pt to be independent and compliant with an appropriate HEP STG Duration 04/19/24 Assessment Summary Assessment Casa rates pain 3/10 left achilles ambulating out of session without device. Soleus stretches and strengthening limited by pain this session. Physical Therapy Plan Frequency and Duration Frequency of Treatment 2x/Week Plan of Care Start Date 03/19/24 Plan of Care End Date 05/17/24 Next Visit Focus/Plan Next Note Type Treatment Note Next Visit Plan US, STM, stretching, strengthening
--- NOTE | 2024-04-11 17:53 | PT.OTN ---
Current Diagnoses Stiffness of left ankle, not elsewhere classified (04/11/24) Achilles tendinitis, left leg (04/11/24) Physical Therapy Treatment Note PT-OP-A Visit Information Start: 03/19/24 17:45 Freq: Status: Active Protocol: Document 04/11/24 17:05 DCW (Rec: 04/11/24 17:52 DCW [id number]) Out-Patient Physical Therapy Visit Information Visit Information Visit Type Treatment Note Visit Start Time 17:05 Visit Stop Time 17:50 Visit Number 4 Number of COMPONENT ASSEMBLER Visits 0 Evaluation Information Evaluation Date 03/19/24 PT-OP-B Current Condition Start: 03/19/24 17:45 Freq: Status: Active Protocol: Document 03/19/24 16:15 DCW (Rec: 03/20/24 10:45 DCW [id number]) Current Condition History of Current Condition Onset Date January, Current Complaints Left ankle/heel pain History of Current Condition Pt is a 59 year old male presenting with a two month history of left heel pain. Pt reports he was playing Pickle Ball and running around, felt a pull in his heel, and then had fairly extreme pain, resulting in significant difficulty walking. Admits he was slowly improving, felt he was probably 60% better, until this weekend when he was out at [facility] and slipped on some ice in the parking lot . Didn't fall, but the sudden slip/correction seems to have reinjured his left heel. Diagnostic Ultrasound showed no focal tear, but there was some thickening at the Achilles tendon insertion point. Pain has been limiting him a bit, usually goes on walks every night, but can currently only tolerate a few blocks. Pt feels he has to lift weights gingerly. Admits that even with recent setback, is not nearly as bad as when it initially happened. Treatment Goals Patient/Caregiver Goals Return to prior level of function, decrease pain PT-OP-C Subjective Start: 03/19/24 17:45 Freq: Status: Active Protocol: Document 04/11/24 17:05 DCW (Rec: 04/11/24 17:52 DCW [id number]) OP-PT Subjective Patient Comments Patient Comments I'm just at a plateau. PT-OP-F Manual Assessment Start: 03/19/24 17:45 Freq: Status: Active Protocol: Document 03/19/24 16:15 DCW (Rec: 03/20/24 09:41 DCW [id number]) Manual Assessments Soft Tissue Assessment Soft Tissue Mobility Assessment Mild edema with tenderness to palpation 2/4: Pain with wincing at Achilles tendon insertion PT-OP-K Range of Motion Start: 03/19/24 17:45 Freq: Status: Active Protocol: Document 03/19/24 16:15 DCW (Rec: 03/20/24 09:41 DCW [id number]) Ankle and Foot Goniometric Range of Motion Ankle and Foot Right Active Dorsiflexion with Knee Flexed 10 Dorsiflexion with Knee Extended 10 Plantarflexion 60 Inversion 40 Eversion 20 Left Active Ankle/Foot ROM WFL No Testing Position Sitting Dorsiflexion with Knee Flexed 3 Plantarflexion 60 Inversion 40 Eversion 20 Comments DF with knee extended measured at -2? PT-OP-M Strength Start: 03/19/24 17:45 Freq: Status: Active Protocol: Document 03/19/24 16:15 DCW (Rec: 03/20/24 09:41 DCW [id number]) Ankle/Foot Strength Ankle and Foot Manual Muscle Testing Right Dorsiflexion (L4) 5 Normal Plantarflexion (S1) 5 Normal Left Dorsiflexion (L4) 5 Normal Plantarflexion (S1) 2+ Poor+ PT-OP-Q Treatments Start: 03/19/24 17:45 Freq: Status: Active Protocol: Document 04/11/24 17:05 DCW (Rec: 04/11/24 17:52 DCW [id number]) Gym Equipment Shuttle Balance Red Details WBOS, Staggered Manual Therapy Treatment Consent Patient gave verbal consent for manual Yes treatment Soft Tissue Mobilization left calf Mobilization Type Cross-Friction,Rolling Intensity/Depth Moderate Body Position Prone PT-OP-R Modalities Start: 03/19/24 17:46 Freq: Status: Active Protocol: Document 04/11/24 17:05 DCW (Rec: 04/11/24 17:52 DCW [id number]) Ultrasound Therapy Treatment Left Foot Patient Position Prone Coupling Medium Ultrasound Gel Applicator Size (cm2) 2 Frequency Setting (mHz) 3 Mode Setting Continuous Duty Cycle 100% Intensity Setting (w/cm2) 1.0 PT-OP-T Assessment and Plan Start: 03/19/24 17:45 Freq: Status: Active Protocol: Document 04/11/24 17:05 DC (Rec: 04/11/24 17:52 DC [id number]) Physical Therapy Assessment Impairments Impairments Activity Tolerance,Gait,Pain, ROM,Strength Goals Three Impairment Pt unable to perform left single heel raise Millinery Blocker Goal (LTG) Pt to demonstrate ability to perform 10 single heel raises on left LE in order to demonstrate improved PF strength LTG Duration 05/18/24 Two Impairment Pt exhibits decreased left dorsiflexion Assisted Goal (LTG) Pt to increase active left dorsiflexion to 5? both with knee flexed and knee extended in order to demonstrate improved functional mobility LTG Duration 05/18/24 One Impairment Pt does not have an appropriate home exercise program Short Term Goal (STG) Pt to be independent and compliant with an appropriate HEP STG Duration 04/19/24 Assessment Summary Assessment Pt making some progress since initial evaluation, but as that was right after a setback , pt feels he has simply returned to how he was when he initially got his referral. Pt happy with his HEP and knowledge level, agreeable to not make any appointments, but call for a follow-up within a month if there have been any changes. Physical Therapy Plan Frequency and Duration Frequency of Treatment 2x/Week Plan of Care Start Date 03/19/24 Plan of Care End Date 05/17/24 Therapeutic Interventions Therapeutic Interventions Gait Training,Home Exercise Program,Joint Mobilizations, Manual Therapy,Neuromuscular Re-education,Patient/Caregiver Education,Self-Care/Home Management,Soft Tissue Mobilization,Taping, Therapeutic Activities, Therapeutic Exercises Modalities Cold Pack/Ice Massage,Hot Packs,Ultrasound Next Visit Focus/Plan Next Note Type Treatment Note Next Visit Plan US, STM, stretching, strengthening
--- NOTE | 2025-01-06 12:48 | PT.OPDS ---
Current Diagnoses Stiffness of left ankle, not elsewhere classified (04/11/24) Achilles tendinitis, left leg (04/11/24) Visit Care Team Role Provider Type Casa Schulte MD Family Provider Physician Primary Care Provider Specialty: Family Practice Address: [address] [place] [address], [address] Email: [email or web address] Rashida Rodriguez PA-C Attending Provider [employer] Slitting Machine Operator Referring Provider Specialty: Medical Address: [address] [place] [address], [address], [place], [address] Email: [email or web address] Visit Number Visit Number 4 Discharge Summary PT-OP-A Visit Information Start: 03/19/24 17:45 Freq: Status: Active Protocol: Document 04/11/24 17:05 DCW (Rec: 04/11/24 17:52 DCW [id number]) Out-Patient Physical Therapy Visit Information Visit Information Visit Type Treatment Note Visit Start Time 17:05 Visit Stop Time 17:50 Visit Number 4 Number of FLAKER OPERATOR Visits 0 Evaluation Information Evaluation Date 03/19/24 PT-OP-B Current Condition Start: 03/19/24 17:45 Freq: Status: Active Protocol: Document 03/19/24 16:15 DCW (Rec: 03/20/24 10:45 DCW [id number]) Current Condition History of Current Condition Onset Date January, Current Complaints Left ankle/heel pain History of Current Pt is a 59 year old male presenting with a two month Condition history of left heel pain. Pt reports he was playing Pickle Ball and running around, felt a pull in his heel , and then had fairly extreme pain, resulting in significant difficulty walking. Admits he was slowly improving, felt he was probably 60% better, until this weekend when he was out at [employer] [facility] and slipped on some ice in the parking lot. Didn't fall, but the sudden slip/correction seems to have reinjured his left heel. Diagnostic Ultrasound showed no focal tear, but there was some thickening at the Achilles tendon insertion point. Pain has been limiting him a bit, usually goes on walks every night, but can currently only tolerate a few blocks. Pt feels he has to lift weights gingerly. Admits that even with recent setback, is not nearly as bad as when it initially happened. Treatment Goals Patient/Caregiver Return to prior level of function, decrease pain Goals PT-OP-C Subjective Start: 03/19/24 17:45 Freq: Status: Active Protocol: Document 04/11/24 17:05 DCW (Rec: 04/11/24 17:52 DCW [id number]) OP-PT Subjective Patient Comments Patient Comments I'm just at a plateau. PT-OP-F Manual Assessment Start: 03/19/24 17:45 Freq: Status: Active Protocol: Document 03/19/24 16:15 DCW (Rec: 03/20/24 09:41 DCW [id number]) Manual Assessments Soft Tissue Assessment Soft Tissue Mobility Mild edema with tenderness to palpation 2/4: Pain with Assessment wincing at Achilles tendon insertion PT-OP-K Range of Motion Start: 03/19/24 17:45 Freq: Status: Active Protocol: Document 03/19/24 16:15 DCW (Rec: 03/20/24 09:41 DCW [id number]) Ankle and Foot Goniometric Range of Motion Ankle and Foot Right Active Dorsiflexion with 10 Knee Flexed Dorsiflexion with 10 Knee Extended Plantarflexion 60 Inversion 40 Eversion 20 Left Active Ankle/Foot ROM WFL No Testing Position Sitting Dorsiflexion with 3 Knee Flexed Plantarflexion 60 Inversion 40 Eversion 20 Comments DF with knee extended measured at -2? PT-OP-M Strength Start: 03/19/24 17:45 Freq: Status: Active Protocol: Document 03/19/24 16:15 DCW (Rec: 03/20/24 09:41 DCW [id number]) Ankle/Foot Strength Ankle and Foot Manual Muscle Testing Right Dorsiflexion (L4) 5 Normal Plantarflexion (S1) 5 Normal Left Dorsiflexion (L4) 5 Normal Plantarflexion (S1) 2+ Poor+ PT-OP-T Assessment and Plan Start: 03/19/24 17:45 Freq: Status: Active Protocol: Document 01/06/25 12:48 DCW (Rec: 01/06/25 12:48 DCW [id number]) Physical Therapy Assessment Assessment Summary Assessment Pt has not been seen in more than eight months. POC has . Pt will require a new referral in order to return in the future. Pt will be discharged from skilled PT at this time. Physical Therapy Plan Discharge Physical Therapy Discharge Reasons No Longer Attending PT
== END 2025-01-07 10:04 | disposition home or self-care (01) ==
LOC: PHYS 17:00
PROVIDERS: Family Provider Family Medicine; PCP Family Medicine; Referring Provider Physician Assistant; Visit Provider Physician Assistant
DX: M76.62 Achilles tendinitis, left leg (principal); M25.672 Stiffness of left ankle, not elsewhere classified
CPT/HCPCS: 97035; 97110; 97140; 97161

== ENCOUNTER → 2024-05-31 10:06 | Outpatient (CLI) | payer BC, SELFPAY ==
[2024-05-31 11:36] LABS: Add Manual Diff / Slide Review NO; Basophils Absolute Auto 0 /uL (0-100); Basophils Percent Auto 0.4 % (0-2); Eosinophils Absolute Auto 100 /uL (0-450); Eosinophils Percent Auto 1.2 % (2-4); Hematocrit 43.5 % (41-53); Hemoglobin 14.9 g/dL (13.5-17.5); Lymphocytes Absolute Auto 1500 /uL (1100-4500); Lymphocytes Percent Auto 21.1 % (25-40); Mean Corpuscular HGB Conc 34.2 % (30-36); Mean Corpuscular Hemoglobin 30.1 PG (26-34); Mean Corpuscular Volume 88.1 fL (80-100); Monocytes Absolute Auto 600 /uL (0-900); Monocytes Percent Auto 9.3 % (3-14); Neutrophils Absolute Auto 4800 /uL (1500-7000); Platelet Count 222 X10^3/uL (150-400); Red Blood Cell Count 4.93 X10^6/uL (4.5-5.9); Red Cell Distribution Width 12.8 % (11.6-14.8)
[2024-05-31 11:57] LABS: Alanine Aminotransferase 24 IU/L (<50); Albumin 4.3 g/dL (3.5-5.0); Albumin Globulin Ratio 1.7 (1.0-2.8); Alkaline Phosphatase 82 U/L (38-126); Aspartate Aminotransferase 22 IU/L (17-59); BUN Creatinine Ratio 15.6 (6-22); Bilirubin Total 1.3 mg/dL (0.2-1.3); Blood Urea Nitrogen 14 mg/dL (9-20); Calcium 9.4 mg/dL (8.4-10.2); Carbon Dioxide 27 mmol/L (22-32); Chloride 103 mmol/L (98-107); Estimated Glomerular Filt Rate > 60 mL/min (>60); Globulin 2.5 g/dL (1.7-4.1); Glucose 97 mg/dL (70-100); HEMOLYSIS < 15 (0-50); Potassium 4.6 mmol/L (3.4-5.1); Sodium 139 mmol/L (137-145); Total Protein 6.8 g/dL (6.3-8.2)
[2024-05-31 11:58] LABS: Bilirubin Direct 0.3 mg/dL (0.0-0.4); Bilirubin Total 1.4 mg/dL (0.2-1.3)
[2024-05-31 12:06] LABS: Hemoglobin A1C% w Est Avg Glu 4.9 % (4.0-6.0)
[2024-05-31 12:24] LABS: Prostate Specific Antigen Scrn 0.614 ng/mL (0.1-4.0)
== END ==
PROVIDERS: Family Provider Family Medicine; PCP Family Medicine; Referring Provider Family Medicine; Visit Provider Family Medicine
DX: R74.01 Elevation of levels of liver transaminase levels (principal); K76.0 Fatty (change of) liver, not elsewhere classified; R73.03 Prediabetes; E78.1 Pure hyperglyceridemia; Z12.5 Encounter for screening for malignant neoplasm of prostate
CPT/HCPCS: 36415; 80053; 82247; 82248; 83036; 85025; G0103